=== PATIENT | male | born 1945 | race African-American/Black ===

== ENCOUNTER 2020-05-23 08:41 | Emergency (ER) | payer MEDICARE, OTHER ==
[~2020-05-23] VITALS: Ht 177.8 cm; Wt 70.0 kg
[2020-05-23 09:00] VITALS: BP 210/78
[2020-05-23 09:20] LABS: BASOPHILS % 0.4 % (0.0-2.0); HEMATOCRIT. 40.6 % (42.0-52.0); HEMOGLOBIN. 13.8 g/dL (14.0-18.0); LYMPHOCYTES % 42.8 % (20.0-50.0); MEAN CORPUSCULAR HEMOGLOBIN 32.4 pg (28.0-32.0); MEAN CORPUSCULAR VOLUME 95.4 fL (80.0-94.0); MEAN PLATELET VOLUME 9.8 fl (7.4-10.4); MONOCYTES % 12.5 % (2.0-8.0); NEUTROPHILS % 37.3 % (40.0-76.0); PLATELET 127 x1000/uL (130-400); RED BLOOD CELL COUNT 4.26 mill/uL (4.7-6.1); RED CELL DISTRIBUTION WIDTH 13.5 % (11.6-14.6)
[2020-05-23 09:26] LABS: CHLORIDE 111 mEq/L (98-107)
== END 2020-05-23 10:25 | disposition left against medical advice (07) ==
LOC: ER 08:41 → CANBEDREQ 16:59
DX: I44.2 Atrioventricular block, complete (principal); L02.11 Cutaneous abscess of neck; I10 Essential (primary) hypertension; Z88.0 Allergy status to penicillin
CPT/HCPCS: 36415; 80048; 84484; 85025; 93005; 99284

== ENCOUNTER 2024-02-15 12:40 | Inpatient (IN) | payer MEDICARE, MEDICAID ==
[~2024-02-15] VITALS: Ht 182.9 cm; Wt 89.4 kg
[2024-02-15 12:43] VITALS: O2SAT 98
[2024-02-15] MEDS: IPRATROPIUM BROMIDE (0.02%) 0.5MG/2.5ML NEB HHN STA (12:55)
[2024-02-15] MEDS: ALBUTEROL (0.083%) 2.5MG/3ML NEB HHN STA (12:55)
[2024-02-15 13:25] VITALS: RESP 30
[2024-02-15 13:49] LABS: BASOPHILS % 0.6 % (0.0-2.0); EOSINOPHILS % 0.4 % (0.0-5.0); HEMATOCRIT. 41.5 % (42.0-52.0); HEMOGLOBIN. 13.6 g/dL (14.0-18.0); LYMPHOCYTES % 16.4 % (20.0-50.0); MEAN CORPUSCULAR HEMOGLOBIN 32.2 pg (28.0-32.0); MEAN CORPUSCULAR HGB CONC 32.7 g/dL (31.0-37.0); MEAN CORPUSCULAR VOLUME 98.6 fL (80.0-94.0); MEAN PLATELET VOLUME 10.1 fl (7.4-10.4); MONOCYTES % 14.8 % (2.0-8.0); NEUTROPHILS % 67.8 % (40.0-76.0); PLATELET 132 x1000/uL (130-400); RED BLOOD CELL COUNT 4.21 mill/uL (4.7-6.1); RED CELL DISTRIBUTION WIDTH 14.1 % (11.6-14.6); WHITE BLOOD COUNT 4.9 x1000/uL (4.5-11.0)
[2024-02-15 13:50] LABS: CHLORIDE 107 mEq/L (98-107); POTASSIUM 4.5 mEq/L (3.5-5.1); SODIUM 139 mEq/L (136-145)
[2024-02-15 13:52] LABS: CALCIUM 9.5 mg/dL (8.7-10.4); CARBON DIOXIDE 22 mEq/L (21-32)
[2024-02-15 13:57] LABS: CREATININE 1.5 mg/dL (0.6-1.3); GLUCOSE 108 mg/dL (70-105); UREA NITROGEN BLOOD 33 mg/dL (9-23)
[2024-02-15 13:59] LABS: ALANINE AMINOTRANSFERASE 22 IU/L (10-49); ALBUMIN 4.1 g/dL (3.2-4.8); ASPARTATE AMINOTRANSFERASE 37 IU/L (<34); BILIRUBIN DIRECT 0.4 mg/dL (<=3.0)
[2024-02-15 14:00] LABS: BILIRUBIN TOTAL 1.1 mg/dL (0.1-1.0); PROTEIN TOTAL 7.1 g/dL (6.0-8.3)
[2024-02-15 14:36] LABS: TROPONIN I HIGH SENSITIVITY 68 ng/L (3.0-53)
[2024-02-15 15:50] VITALS: RESP 28
[2024-02-15] MEDS ORDERED: ACETAMINOPHEN 325MG TABLET PO PRN (16:45)
[2024-02-15] MEDS ORDERED: GUAIFENESIN 200MG/10ML SUGAR FREE UDC PO PRN (16:45)
[2024-02-15] MEDS ORDERED: IPRATROPIUM/ALBUTEROL 0.5-3(2.5)MG/3ML NEB HHN PRN (16:45)
[2024-02-15] MEDS ORDERED: ONDANSETRON HCL 4MG/2ML INJ IV PRN (16:45)
[2024-02-15] MEDS ORDERED: MAGNESIUM/ALUMINUM HYDROXIDE/SIMETHICONE 30ML UDC PO PRN (16:45)
[2024-02-15 17:07] LABS: BG BASE EXCESS -3.2 mmol/L (-2.0-3.0); BG CARBOXYHEMOGLOBIN 0.2 % (0.5-1.5); BG DEOXYHEMOGLOBIN 0.3 % (0.0-5.0); BG FRACTION INSPIRED OXYGEN 100; BG HCO3 ACT 20.1 mmol/L (21.0-28.0); BG METHEMOGLOBIN 0.3 % (0.5-1.5); BG OXYGEN SATURATION 99.7 % (94.0-98.0); BG OXYHEMOGLOBIN 99.2 % (94.0-98.0); BG PO2 574.1 mmHg (83.0-108.0); BG SAMPLE SITE RIGHT RADIAL; BG TOTAL HEMOGLOBIN 13.1 g/dL (13.5-17.5); BG VENT MODE MASK - BIPAP
[2024-02-15 17:25] VITALS: RESP 36
[2024-02-15 17:38] LABS: PHOSPHORUS 3.6 mg/dL (2.5-4.9)
[2024-02-15] MEDS: ENOXAPARIN 40MG/0.4ML SYR SUBCUT SCH (17:48)
[2024-02-15] MEDS: FUROSEMIDE 40MG/4ML VIAL IVP NR (17:48)
[2024-02-15 20:16] LABS: TROPONIN I HIGH SENSITIVITY 74 ng/L (3.0-53)
[2024-02-15 20:27] LABS: CLARITY URINE CLEAR (CLEAR); COLOR URINE YELLOW (YELLOW); GLUCOSE URINE NEGATIVE (NEGATIVE); KETONES URINE NEGATIVE (NEGATIVE); LEUKOCYTE ESTERASE URINE NEGATIVE (NEGATIVE); NITRITE URINE NEGATIVE (NEGATIVE); OCCULT BLOOD URINE NEGATIVE (NEGATIVE); PROTEIN URINE 1+ (NEGATIVE); SPECIFIC GRAVITY URINE 1.012 (1.005-1.030)
[2024-02-15 20:34] LABS: *AMPHETAMINES SCREEN URINE NEGATIVE (NEGATIVE); *BARBITURATES SCREEN URINE NEGATIVE (NEGATIVE); *BENZODIAZEPINES SCREEN URINE NEGATIVE (NEGATIVE); *COCAINE SCREEN URINE NEGATIVE (NEGATIVE)
[2024-02-15 20:35] LABS: CANNABINOID URINE SCREEN NEGATIVE (NEGATIVE); ECSTASY MDMA SCREEN URINE NEGATIVE (NEGATIVE); METHADONE URINE SCREEN NEGATIVE (NEGATIVE); OPIATES URINE SCREEN NEGATIVE (NEGATIVE); PHENCYCLIDINE URINE SCREEN NEGATIVE (NEGATIVE)
[2024-02-15 20:50] VITALS: RESP 31
[2024-02-15 20:55] LABS: BACTERIA URINE 1+; RBC URINE NONE SEEN /hpf (0-2); SQUAMOUS EPITHELIAL CELL URINE FEW /lpf (RARE/1+); WBC URINE 0-2 /hpf (0-2)
[2024-02-15 21:11] LABS: TROPONIN I HIGH SENSITIVITY 84 ng/L (3.0-53)
[2024-02-16 01:10] VITALS: RESP 36
[2024-02-16] MEDS: FUROSEMIDE 40MG/4ML VIAL IV SCH (03:59)
[2024-02-16] MEDS: FAMOTIDINE 20MG TABLET PO SCH (03:59)
[2024-02-16 06:00] VITALS: RESP 33
[2024-02-16 08:25] VITALS: RESP 27
[2024-02-16 09:08] LABS: BG BASE EXCESS -1.4 mmol/L (-2.0-3.0); BG CARBOXYHEMOGLOBIN 0.8 % (0.5-1.5); BG DEOXYHEMOGLOBIN 0.7 % (0.0-5.0); BG FRACTION INSPIRED OXYGEN 35; BG HCO3 ACT 21.9 mmol/L (21.0-28.0); BG METHEMOGLOBIN 0.2 % (0.5-1.5); BG OXYGEN SATURATION 99.3 % (94.0-98.0); BG OXYHEMOGLOBIN 98.3 % (94.0-98.0); BG PCO2 32.8 mmHg (35.0-48.0); BG PH 7.443 (7.350-7.450); BG PO2 150.2 mmHg (83.0-108.0); BG SAMPLE SITE RIGHT RADIAL; BG TOTAL HEMOGLOBIN 13.8 g/dL (13.5-17.5); BG VENT MODE MASK - BIPAP
[2024-02-16 10:00] VITALS: RESP 24
[2024-02-16] MEDS: ASPIRIN 81MG EC TABLET PO SCH (10:10)
[2024-02-16] MEDS: MULTIVITAMINS,THER W-MINERALS TABLET PO SCH (10:10)
[2024-02-16 18:00] VITALS: O2SAT 98
[2024-02-16 22:20] VITALS: BP 138/95; PULSE 103; RESP 25; TEMP 37.16964; O2SAT 99
[2024-02-17] VITALS (17 sets, daily range): BP systolic 109–137; BP diastolic 62–106; PULSE 87–111; RESP 19–50; TEMP 36.28068–37.503; O2SAT 93–100
[2024-02-17] MEDS: CLONIDINE 0.1MG TABLET PO PRN (02:34)
[2024-02-17 05:38] LABS: BASOPHILS % 0.4 % (0.0-2.0); EOSINOPHILS % 0.4 % (0.0-5.0); HEMATOCRIT. 41.8 % (42.0-52.0); HEMOGLOBIN. 13.8 g/dL (14.0-18.0); LYMPHOCYTES % 23.7 % (20.0-50.0); MEAN CORPUSCULAR HEMOGLOBIN 32.2 pg (28.0-32.0); MEAN CORPUSCULAR HGB CONC 32.9 g/dL (31.0-37.0); MEAN CORPUSCULAR VOLUME 97.9 fL (80.0-94.0); MONOCYTES % 14.5 % (2.0-8.0); PLATELET 106 x1000/uL (130-400); RED BLOOD CELL COUNT 4.27 mill/uL (4.7-6.1); RED CELL DISTRIBUTION WIDTH 13.5 % (11.6-14.6); WHITE BLOOD COUNT 4.7 x1000/uL (4.5-11.0)
[2024-02-17 05:53] LABS: CHLORIDE 103 mEq/L (98-107); POTASSIUM 4.4 mEq/L (3.5-5.1); SODIUM 138 mEq/L (136-145)
[2024-02-17 05:54] LABS: CARBON DIOXIDE 23 mEq/L (21-32)
[2024-02-17 05:59] LABS: CREATININE 1.4 mg/dL (0.6-1.3); GLUCOSE 94 mg/dL (70-105)
[2024-02-17 06:00] LABS: UREA NITROGEN BLOOD 35 mg/dL (9-23)
[2024-02-17 06:08] LABS: TROPONIN I HIGH SENSITIVITY 1529 ng/L (3.0-53)
[2024-02-17] MEDS: FUROSEMIDE 40MG/4ML VIAL IVP ONE (10:56)
[2024-02-17 11:19] LABS: BG BASE EXCESS -0.6 mmol/L (-2.0-3.0); BG CARBOXYHEMOGLOBIN 0.9 % (0.5-1.5); BG DEOXYHEMOGLOBIN 0.4 % (0.0-5.0); BG FRACTION INSPIRED OXYGEN 35; BG HCO3 ACT 22.8 mmol/L (21.0-28.0); BG METHEMOGLOBIN 0.3 % (0.5-1.5); BG OXYGEN SATURATION 99.6 % (94.0-98.0); BG OXYHEMOGLOBIN 98.4 % (94.0-98.0); BG PCO2 33.6 mmHg (35.0-48.0); BG PH 7.449 (7.350-7.450); BG PO2 168.6 mmHg (83.0-108.0); BG SAMPLE SITE LEFT RADIAL; BG TOTAL HEMOGLOBIN 13.1 g/dL (13.5-17.5); BG VENT MODE MASK - BIPAP
[2024-02-17 12:23] LABS: PROTHROMBIN TIME 11.4 sec (9.6-11.0)
[2024-02-17] MEDS: FUROSEMIDE 40MG/4ML VIAL IVP SCH (13:37)
[2024-02-17] MEDS: ENOXAPARIN 100MG/ML SYR SUBCUT NR (13:38)
[2024-02-17] MEDS: NITROGLYCERIN OINT 1GM/INCH UDPKT TD SCH (13:39)
[2024-02-17 13:54] LABS: TROPONIN I HIGH SENSITIVITY 2402 ng/L (3.0-53)
[2024-02-17] MEDS: ATORVASTATIN CALCIUM 20MG TABLET PO SCH (21:41)
[2024-02-17] MEDS: CARVEDILOL 3.125 MG TABLET PO SCH (21:42)
[2024-02-17] MEDS: ENOXAPARIN 100MG/ML SYR SUBCUT SCH (21:42)
[2024-02-18] VITALS (11 sets, daily range): BP systolic 93–128; BP diastolic 70–88; PULSE 87–100; RESP 19–38; TEMP 36.28068–36.72516; O2SAT 99–100
[2024-02-18 06:44] LABS: HEMATOCRIT. 38.5 % (42.0-52.0); HEMOGLOBIN. 12.8 g/dL (14.0-18.0); MEAN CORPUSCULAR HGB CONC 33.2 g/dL (31.0-37.0); MEAN CORPUSCULAR VOLUME 96.4 fL (80.0-94.0); MEAN PLATELET VOLUME 10.1 fl (7.4-10.4); PLATELET 98 x1000/uL (130-400); RED BLOOD CELL COUNT 3.99 mill/uL (4.7-6.1); RED CELL DISTRIBUTION WIDTH 13.4 % (11.6-14.6); WHITE BLOOD COUNT 3.8 x1000/uL (4.5-11.0)
[2024-02-18 06:53] LABS: POTASSIUM 3.9 mEq/L (3.5-5.1)
[2024-02-18 06:55] LABS: CALCIUM 8.8 mg/dL (8.7-10.4)
[2024-02-18 06:59] LABS: CREATININE 1.8 mg/dL (0.6-1.3)
[2024-02-18 07:19] LABS: DIFFERENTIAL COMMENT 1
[2024-02-18] MEDS ORDERED: HEPARIN 1000 UNITS/ML 10ML ONE (10:05)
[2024-02-18] MEDS ORDERED: LIDOCAINE HCL 1% 20ML VIAL ONE ×2 (10:05→10:11)
[2024-02-18] MEDS ORDERED: FENTANYL CITRATE/PF 50MCG/ML 2ML VIAL ONE (10:05)
[2024-02-18] MEDS ORDERED: MIDAZOLAM HCL 2 MG/2 ML VIAL ONE (10:05)
[2024-02-18] MEDS ORDERED: IODIXANOL 320MG/ML 100 ML BOTTLE IV ONE (10:05)
[2024-02-18] MEDS ORDERED: ACETAMINOPHEN 325MG TABLET PO PRN (11:00)
[2024-02-18] MEDS ORDERED: ONDANSETRON HCL 4MG/2ML INJ IV PRN (11:00)
[2024-02-18] MEDS ORDERED: ATROPINE SULFATE 1MG/10ML SYR IV PRN (11:00)
[2024-02-18] MEDS: SODIUM CHLORIDE 0.45% 1,000 ML IV SCH (16:04)
[2024-02-18 22:39] LABS: PLATELET ESTIMATE DECREASED
[2024-02-18 23:05] LABS: TROPONIN I HIGH SENSITIVITY 5762 ng/L (3.0-53)
[2024-02-19] VITALS (12 sets, daily range): BP systolic 101–122; BP diastolic 69–91; PULSE 79–92; RESP 15–36; TEMP 36.114–36.78072; O2SAT 96–100
[2024-02-19 06:24] LABS: CALCIUM 8.6 mg/dL (8.7-10.4); POTASSIUM 4.1 mEq/L (3.5-5.1)
[2024-02-19 06:30] LABS: CREATININE 1.7 mg/dL (0.6-1.3)
[2024-02-19 06:36] LABS: HEMATOCRIT. 38.6 % (42.0-52.0); HEMOGLOBIN. 12.6 g/dL (14.0-18.0); MEAN CORPUSCULAR HEMOGLOBIN 31.5 pg (28.0-32.0); MEAN CORPUSCULAR HGB CONC 32.5 g/dL (31.0-37.0); MEAN CORPUSCULAR VOLUME 96.7 fL (80.0-94.0); MEAN PLATELET VOLUME 10.1 fl (7.4-10.4); PLATELET 89 x1000/uL (130-400); RED CELL DISTRIBUTION WIDTH 13.3 % (11.6-14.6); WHITE BLOOD COUNT 3.9 x1000/uL (4.5-11.0)
[2024-02-19 07:09] LABS: DIFFERENTIAL COMMENT 1
[2024-02-19] MEDS: SPIRONOLACTONE 25MG TABLET PO SCH (09:02)
[2024-02-19] MEDS: EMPAGLIFLOZIN 10MG TABLET PO SCH (10:00)
[2024-02-19] MEDS: LOSARTAN 25 MG TABLET PO SCH (11:24)
[2024-02-19 18:10] LABS: TROPONIN I HIGH SENSITIVITY 4833 ng/L (3.0-53)
[2024-02-19] MEDS: FUROSEMIDE 40MG/4ML VIAL IV SCH (18:20)
[2024-02-19 19:03] LABS: PLATELET ESTIMATE DECREASED
[2024-02-20] VITALS (12 sets, daily range): BP systolic 66–120; BP diastolic 50–85; PULSE 75–86; RESP 11–31; TEMP 36.6696–36.9474; O2SAT 93–100
[2024-02-20] MEDS: METOLAZONE 2.5MG TABLET PO NR (05:29)
[2024-02-20 07:47] LABS: POTASSIUM 4.3 mEq/L (3.5-5.1)
[2024-02-20 07:48] LABS: CALCIUM 8.8 mg/dL (8.7-10.4)
[2024-02-20 07:53] LABS: CREATININE 1.6 mg/dL (0.6-1.3)
[2024-02-20 08:11] LABS: HEMATOCRIT. 35.8 % (42.0-52.0); HEMOGLOBIN. 11.9 g/dL (14.0-18.0); MEAN CORPUSCULAR HEMOGLOBIN 31.7 pg (28.0-32.0); MEAN CORPUSCULAR HGB CONC 33.2 g/dL (31.0-37.0); MEAN CORPUSCULAR VOLUME 95.5 fL (80.0-94.0); MEAN PLATELET VOLUME 10.2 fl (7.4-10.4); PLATELET 108 x1000/uL (130-400); RED BLOOD CELL COUNT 3.75 mill/uL (4.7-6.1); WHITE BLOOD COUNT 4.4 x1000/uL (4.5-11.0)
[2024-02-20 08:49] LABS: DIFFERENTIAL COMMENT 1
[2024-02-20 14:35] LABS: PLATELET ESTIMATE SLIGHTLY DECREASED
[2024-02-20 22:20] LABS: TROPONIN I HIGH SENSITIVITY 2723 ng/L (3.0-53)
[2024-02-21] VITALS (13 sets, daily range): BP systolic 76–104; BP diastolic 50–82; PULSE 75–89; RESP 12–27; TEMP 36.33624–36.89184; O2SAT 96–100
[2024-02-21 05:58] LABS: CALCIUM 8.8 mg/dL (8.7-10.4)
[2024-02-21 06:03] LABS: CREATININE 1.9 mg/dL (0.6-1.3)
[2024-02-21 07:34] LABS: HEMATOCRIT. 35.3 % (42.0-52.0); HEMOGLOBIN. 12.1 g/dL (14.0-18.0); MEAN CORPUSCULAR HEMOGLOBIN 32.6 pg (28.0-32.0); MEAN CORPUSCULAR HGB CONC 34.3 g/dL (31.0-37.0); MEAN CORPUSCULAR VOLUME 95.1 fL (80.0-94.0); MEAN PLATELET VOLUME 10.5 fl (7.4-10.4); PLATELET 137 x1000/uL (130-400); RED BLOOD CELL COUNT 3.71 mill/uL (4.7-6.1); RED CELL DISTRIBUTION WIDTH 13.2 % (11.6-14.6); WHITE BLOOD COUNT 5.1 x1000/uL (4.5-11.0)
[2024-02-21 07:56] LABS: DIFFERENTIAL COMMENT 1
[2024-02-21] MEDS: ACETAMINOPHEN 325MG TABLET PO PRN (09:06)
[2024-02-21] MEDS: FUROSEMIDE 40MG/4ML VIAL IV SCH (12:45)
[2024-02-21 18:03] LABS: PLATELET ESTIMATE NORMAL
[2024-02-21] MEDS: DOCUSATE SODIUM 100MG CAPSULE PO PRN (21:12)
[2024-02-22] VITALS (25 sets, daily range): BP systolic 60–143; BP diastolic 28–95; PULSE 70–93; RESP 16–29; TEMP 36.44736–36.78072; O2SAT 98–100
[2024-02-22 04:03] LABS: CREATININE URINE RANDOM 132.2 mg/dL
[2024-02-22 05:59] LABS: BASOPHILS % 0.5 % (0.0-2.0); EOSINOPHILS % 3.5 % (0.0-5.0); HEMATOCRIT. 36.5 % (42.0-52.0); HEMOGLOBIN. 12.2 g/dL (14.0-18.0); LYMPHOCYTES % 37.4 % (20.0-50.0); MEAN CORPUSCULAR HEMOGLOBIN 31.8 pg (28.0-32.0); MEAN CORPUSCULAR HGB CONC 33.6 g/dL (31.0-37.0); MEAN CORPUSCULAR VOLUME 94.7 fL (80.0-94.0); MEAN PLATELET VOLUME 10.3 fl (7.4-10.4); MONOCYTES % 11.4 % (2.0-8.0); NEUTROPHILS % 47.2 % (40.0-76.0); PLATELET 152 x1000/uL (130-400); RED BLOOD CELL COUNT 3.85 mill/uL (4.7-6.1); RED CELL DISTRIBUTION WIDTH 13.3 % (11.6-14.6); WHITE BLOOD COUNT 5.3 x1000/uL (4.5-11.0)
[2024-02-22 06:17] LABS: POTASSIUM 4.3 mEq/L (3.5-5.1)
[2024-02-22 10:51] LABS: BG BASE EXCESS 2.9 mmol/L (-2.0-3.0); BG CARBOXYHEMOGLOBIN 0.5 % (0.5-1.5); BG DEOXYHEMOGLOBIN 0.5 % (0.0-5.0); BG FRACTION INSPIRED OXYGEN 32; BG HCO3 ACT 28.6 mmol/L (21.0-28.0); BG OXYGEN SATURATION 99.5 % (94.0-98.0); BG PCO2 48.3 mmHg (35.0-48.0); BG PO2 191.3 mmHg (83.0-108.0); BG SAMPLE SITE RIGHT RADIAL; BG TOTAL HEMOGLOBIN 13.2 g/dL (13.5-17.5); BG VENT MODE NASAL CANNULA
[2024-02-22] MEDS ORDERED: IOHEXOL-350 100 ML BOTTLE ONE (13:02)
[2024-02-22] MEDS: CLOPIDOGREL 75MG TABLET NG SCH (13:25)
[2024-02-22] MEDS ORDERED: ATORVASTATIN CALCIUM 20MG TABLET PO SCH (21:00)
[2024-02-23 14:11] LABS: *CREATININE RANDOM URINE 137.7 mg/dL (Not Estab.); MICROALBUMIN RANDOM URINE 8.9 ug/mL (Not Estab.)
== END 2024-02-22 14:11 | disposition short-term general hospital (02) | DRG 280 ==
LOC: ER 12:40 → EDBEDREQ 16:49 → EDBEDREQTM 16:49 → 5EST 02-16 22:14 → MICUSO 02-22 10:05
PROVIDERS: ADMIT Preventive Medicine Clinical Informatics; ATTEND Preventive Medicine Clinical Informatics
PROC: 5A09357 Assistance with Respiratory Ventilation, Less than 24 Consecutive Hours, Continuous Positive Airway Pressure (ICD-10-PCS; 2024-02-15)
PROC: 5A09457 Assistance with Respiratory Ventilation, 24-96 Consecutive Hours, Continuous Positive Airway Pressure (ICD-10-PCS; 2024-02-16)
PROC: B211YZZ Fluoroscopy of Multiple Coronary Arteries using Other Contrast (ICD-10-PCS; principal; 2024-02-18)
PROC: 4A023N7 Measurement of Cardiac Sampling and Pressure, Left Heart, Percutaneous Approach (ICD-10-PCS; 2024-02-18)
DX: I13.0 Hypertensive heart and chronic kidney disease with heart failure and stage 1 through stage 4 chronic kidney disease, or unspecified chronic kidney disease (principal); I50.23 Acute on chronic systolic (congestive) heart failure; I21.A1 Myocardial infarction type 2; J96.21 Acute and chronic respiratory failure with hypoxia; N17.9 Acute kidney failure, unspecified; R17 Unspecified jaundice; E87.3 Alkalosis; G93.40 Encephalopathy, unspecified; E87.1 Hypo-osmolality and hyponatremia; Z20.822 Contact with and (suspected) exposure to COVID-19; E66.9 Obesity, unspecified; D64.9 Anemia, unspecified; G47.33 Obstructive sleep apnea (adult) (pediatric); I49.5 Sick sinus syndrome; I08.1 Rheumatic disorders of both mitral and tricuspid valves; I45.10 Unspecified right bundle-branch block; D69.6 Thrombocytopenia, unspecified; I66.21 Occlusion and stenosis of right posterior cerebral artery; N18.2 Chronic kidney disease, stage 2 (mild); I25.10 Atherosclerotic heart disease of native coronary artery without angina pectoris; Z68.26 Body mass index [BMI] 26.0-26.9, adult; Z79.899 Other long term (current) drug therapy; Z88.0 Allergy status to penicillin; Z95.0 Presence of cardiac pacemaker; Z87.440 Personal history of urinary (tract) infections
CPT/HCPCS: 36415; 36600; 70496; 70498; 71045; 76770; 78582; 80048; 80061; 80076; 80305; 81003; 82043; 82375; 82570; 82805; 82962; 83605; 83735; 83880; 84100; 84145; 84300; 84484; 84540; 85025; 85379; 87420; 87426; 87804; 93005; 93306; 93458; 93970; 94070; 94660; 97162; 97166; 97530; 99291; A4606; A4663; C1769; C1887; C1893; J1644; J1650; J1940; J2250; J3010; J3490; Q9967